=== PATIENT | male | born 1995 | race Caucasian/White ===

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

== ENCOUNTER 2018-03-25 02:38 | Emergency (ER) | payer SELFPAY, OTHER, MEDICAID | END 2018-03-25 03:02 | disposition left against medical advice (07) | LOC: M ED 02:38 | DX: Z53.29 Procedure and treatment not carried out because of patient's decision for other reasons (principal) ==

== ENCOUNTER 2019-05-24 22:30 | Emergency (ER) | payer OTHER, SELFPAY ==
[~2019-05-24] VITALS: Ht 190.5 cm; Wt 91.6 kg
[~2019-05-24 22:30] MED LIST changes: +TRAZ1TAB6 PO; -TRAZO50TA PO
[2019-05-25 01:29] VITALS: BP 132/66
--- NOTE | 2019-05-25 07:36 | REP ---
Clinical: Trauma. Technique: AP, lateral, bilateral oblique views of the right hand. Findings: There is a comminuted transverse fracture through the mid fourth metacarpal shaft with mild volar angulation and overlying soft tissue swelling. Impression: Fracture of the fourth metacarpal bone. Electronically Signed by Nicolas Howell MD 05/25/2019 07:27 A
== END 2019-05-25 01:35 | disposition home or self-care (01) ==
LOC: M ED 22:30
DX: S62.354A Nondisplaced fracture of shaft of fourth metacarpal bone, right hand, initial encounter for closed fracture (principal); Y04.0XXA Assault by unarmed brawl or fight, initial encounter; Y92.148 Other place in prison as the place of occurrence of the external cause; F17.210 Nicotine dependence, cigarettes, uncomplicated

== ENCOUNTER 2020-04-10 08:30 | Emergency (ER) | payer MEDICAID, OTHER, SELFPAY ==
[~2020-04-10] VITALS: Ht 188 cm; Wt 107.3 kg
[2020-04-10] MEDS ORDERED: SERO1TAB2 PO (08:51)
[2020-04-10 09:42] LABS: BASO # 0.1 10^3/uL (0.0-0.2); BASO % 0.8 % (0.0-1.0); EOS # 0.2 10^3/uL (0.0-0.5); EOS % 1.3 % (0.0-3.0); HEMATOCRIT 44.5 % (42.0-52.0); HEMOGLOBIN 15.1 g/dl (13.5-17.5); LYMPH # 2.8 10^3/uL (1.5-5.0); LYMPH % 24.4 % (24.0-44.0); MEAN CORPUSCULAR HGB CONC 33.9 g/dl (32.0-36.5); MEAN CORPUSCULAR VOLUME 85.6 fl (80.0-96.0); MONO # 1.3 10^3/uL (0.0-0.8); MONO % 11.3 % (0.0-5.0); PLATELET COUNT, AUTOMATED 331 10^3/uL (150-450); WHITE BLOOD COUNT 11.3 10^3/uL (4.0-10.0)
[2020-04-10] MEDS ORDERED: LIDOCAINE 2% MDV 20ML VIAL SC ONE (09:45)
[2020-04-10 10:05] LABS: ERYTHROCYTE SEDIMENTATION RATE 5 mm/hr (0-15)
[2020-04-10] MEDS ORDERED: BACT800T5 PO (11:10)
[2020-04-10 11:24] VITALS: BP 145/90
== END 2020-04-10 11:24 | disposition home or self-care (01) ==
LOC: M ED 08:30
DX: L60.0 Ingrowing nail (principal); F17.218 Nicotine dependence, cigarettes, with other nicotine-induced disorders

== ENCOUNTER 2020-05-19 13:06 | Emergency (ER) | payer MEDICAID ==
[~2020-05-19 13:06] MED LIST changes: +BACT800T5 PO; +SERO1TAB2 PO
== END 2020-05-19 14:40 | disposition left against medical advice (07) ==
LOC: M ED 13:06
DX: Z53.20 Procedure and treatment not carried out because of patient's decision for unspecified reasons (principal)

== ENCOUNTER 2020-06-01 01:00 | Emergency (ER) | payer MEDICAID, OTHER ==
[2020-06-01] MEDS ORDERED: LIDOCAINE W/EPINEPHRINE 1% 20ML VIAL As Ordered ONE (01:10)
== END 2020-06-01 01:45 | disposition left against medical advice (07) ==
LOC: M ED 01:00
DX: S31.030A Puncture wound without foreign body of lower back and pelvis without penetration into retroperitoneum, initial encounter (principal); S00.83XA Contusion of other part of head, initial encounter; X99.9XXA Assault by unspecified sharp object, initial encounter; Y92.410 Unspecified street and highway as the place of occurrence of the external cause; Z53.29 Procedure and treatment not carried out because of patient's decision for other reasons

== ENCOUNTER 2020-09-16 14:03 | Emergency (ER) | payer MEDICAID ==
[~2020-09-16] VITALS: Ht 182.9 cm; Wt 88.6 kg
[2020-09-16 14:04] VITALS: BP 151/68
[2020-09-16 15:08] LABS: BASO % 0.3 % (0.0-1.0); EOS # 0.1 10^3/uL (0.0-0.5); EOS % 0.7 % (0.0-3.0); LYMPH # 1.6 10^3/uL (1.5-5.0); LYMPH % 10.4 % (24.0-44.0); MEAN CORPUSCULAR HEMOGLOBIN 27.5 pg (27.0-33.0); MEAN CORPUSCULAR HGB CONC 31.8 g/dl (32.0-36.5); MEAN CORPUSCULAR VOLUME 86.3 fl (80.0-96.0); MONO # 1.1 10^3/uL (0.0-0.8); MONO % 7.4 % (0.0-5.0); NEUTROPHILS # 12.3 10^3/uL (1.5-8.5); NEUTROPHILS % 80.8 % (36.0-66.0); PLATELET COUNT, AUTOMATED 288 10^3/uL (150-450); WHITE BLOOD COUNT 15.2 10^3/uL (4.0-10.0)
[2020-09-16] MEDS ORDERED: ISOVUE-370 76% 100ML VIAL As Ordered ONE (15:26)
[2020-09-16] MEDS ORDERED: AUGM875T28 PO (17:17)
--- NOTE | 2020-09-21 08:15 | REP ---
INDICATION: R lower jaw swelling. Neck pain. Repeat dictation. Preliminary report is provided at the time of the exam by ginny GRADY. COMPARISON: None. TECHNIQUE: Helical scanning is acquired and 3 mm axial images re-formatted. 75 mL of intravenous Isovue 370 is administered. FINDINGS: Visualized intracranial structures are unremarkable. The paranasal sinuses are unremarkable. No intraorbital abnormality is seen. There are carious maxillary teeth bilaterally. Under opted wisdom teeth are noted bilaterally. No bony destructive lesion is appreciated. There is diffuse soft tissue swelling in the soft tissues about the right mandible angle and upper neck. There is swelling of the platysma on the right. No abscess is appreciated. Submandibular and parotid glands are normal and symmetric. There are multiple small thyroid nodules or cysts. The largest of these is in the left lobe of the thyroid gland measuring 7 mm in greatest diameter. There is shotty reactive mild right anterior cervical lymphadenopathy. The largest anterior cervical lymph node measures 9 mm in short axis dimension. Lung apices are clear. IMPRESSION: Soft tissue edema and dermal is and subdermal edema consistent with cellulitis. No abscess seen. Carious maxillary and mandibular teeth. Shotty cervical lymphadenopathy on the right. Multiple tiny thyroid nodules and/or cysts. <Electronically signed by Reinier Santa > 09/21/20 1329
== END 2020-09-16 17:24 | disposition home or self-care (01) ==
LOC: M ED 14:03
DX: L03.211 Cellulitis of face (principal); K02.9 Dental caries, unspecified; F31.9 Bipolar disorder, unspecified; F90.9 Attention-deficit hyperactivity disorder, unspecified type; F15.20 Other stimulant dependence, uncomplicated; F17.210 Nicotine dependence, cigarettes, uncomplicated
CPT/HCPCS: 36415; 70491; 80047; 85025; 87040; 99283; Q9967

== ENCOUNTER 2020-09-18 07:07 | Inpatient (IN) | payer MEDICAID, OTHER ==
[~2020-09-18] VITALS: Ht 185.4 cm; Wt 85.4 kg
[~2020-09-18 07:07] MED LIST changes: +AUGM875T28 PO
[2020-09-18] MEDS ORDERED: NS 2,560 ML in IV 1 EA IV ONE (08:00)
[2020-09-18] MEDS ORDERED: VANCOMYCIN HCL 1,000 MG, VIAL MATE ADAPTER 1 EACH in D5W 250 ML IV ONE (08:15)
[2020-09-18] MEDS ORDERED: VANCOMYCIN HCL 1,750 MG in D5W 250 ML IV ONE (08:15)
[2020-09-18] MEDS ORDERED: dexameTHASONE 20MG/5ML VIAL (J1100 PER 1MG) IV ONE (08:15)
[2020-09-18] MEDS ORDERED: VANCOMYCIN HCL 750 MG, VIAL MATE ADAPTER 1 EACH in D5W 250 ML IV ONE (08:15)
[2020-09-18 08:36] LABS: BASO # 0.1 10^3/uL (0.0-0.2); BASO % 0.3 % (0.0-1.0); EOS % 0.1 % (0.0-3.0); HEMATOCRIT 44.3 % (42.0-52.0); HEMOGLOBIN 14.3 g/dl (13.5-17.5); LYMPH # 2.1 10^3/uL (1.5-5.0); LYMPH % 9.1 % (24.0-44.0); MEAN CORPUSCULAR HEMOGLOBIN 27.3 pg (27.0-33.0); MEAN CORPUSCULAR HGB CONC 32.3 g/dl (32.0-36.5); MEAN CORPUSCULAR VOLUME 84.7 fl (80.0-96.0); MONO # 1.8 10^3/uL (0.0-0.8); MONO % 7.8 % (0.0-5.0); NEUTROPHILS # 18.5 10^3/uL (1.5-8.5); NEUTROPHILS % 82.2 % (36.0-66.0); PLATELET COUNT, AUTOMATED 330 10^3/uL (150-450); RED BLOOD COUNT 5.23 10^6/uL (4.30-6.10); WHITE BLOOD COUNT 22.6 10^3/uL (4.0-10.0)
[2020-09-18 08:49] LABS: ALT/SGPT 35 U/L (12-78); BILIRUBIN,DIRECT 0.3 MG/DL (0.0-0.2); BILIRUBIN,TOTAL 1.1 MG/DL (0.2-1.0); BLOOD UREA NITROGEN 6 MG/DL (7-18); CALCIUM LEVEL 9.2 MG/DL (8.5-10.1); CARBON DIOXIDE LEVEL 27 MEQ/L (21-32); CHLORIDE LEVEL 106 MEQ/L (98-107); CREATININE FOR GFR 0.86 MG/DL (0.70-1.30); GLOMERULAR FILTRATION RATE > 60.0 (>60); GLUCOSE, FASTING 125 MG/DL (70-100); POTASSIUM SERUM 3.4 MEQ/L (3.5-5.1); SODIUM LEVEL 140 MEQ/L (136-145); TOTAL PROTEIN 7.8 GM/DL (6.4-8.2)
[2020-09-18] MEDS ORDERED: ISOVUE-370 76% 100ML VIAL As Ordered ONE (09:01)
[2020-09-18 09:02] LABS: ERYTHROCYTE SEDIMENTATION RATE 10 mm/hr (0-15)
--- NOTE | 2020-09-18 09:42 | REP ---
INDICATION: large swollen r mandibular into neck. COMPARISON: 09/16/2020 TECHNIQUE: Axial contrast-enhanced images from the skull base to the thoracic inlet with coronal and sagittal reformations using 100 cc Isovue 370 intravenous contrast material. This CT examination was performed using the following dose reduction techniques: Automated exposure control, adjustment of mA and/or kv according to the patient's size, and use of iterative reconstruction technique. FINDINGS: There is considerable subcutaneous soft tissue swelling with areas of edema and fat stranding along the right side of the face extending from the level of the temporomandibular joint and to the right submandibular region centered at the angle of the mandible which has obviously increased from the prior examination. Forming phlegmon at the level of the angle of the mandible cannot be excluded, but without discernible abscess/drainable collection. Swelling extends deep to the right mandible with mild asymmetric inflammatory edematous changes to the right parapharyngeal region again without drainable collection. The airway remains patent and relatively midline. Associated reactive adenopathy is appreciated. The sinuses, mastoid air cells, and auditory canals appear patent and essentially normal. There is minimal mucosal thickening to the right maxillary sinus which is nonspecific and without fluid level. The above inflammatory/infectious changes may in part be related to dental disease involving the right maxillary 2nd molar which appears irregular and with loss of normal contour and small amount of adjacent gas. Remainder of the osseous structures appear relatively intact and normal. IMPRESSION: 1. Increasing inflammatory/infectious changes along the right-side of the face as described above. Phlegmonous changes are suspected, but without discernible drainable collection/abscess by current CT evaluation. 2. Findings may be secondary to dental process involving the right maxillary 2nd molar. <Electronically signed by Nicolas Howell > 09/18/20 0934
--- NOTE | 2020-09-18 11:16 | REP ---
INDICATION: swollen raised area, concern for collection r lower face COMPARISON: CT dated 09/18/2020, 09/16/2020 TECHNIQUE: Neely scale and color evaluation of the right facial region using linear high-frequency transducer. FINDINGS: Ultrasound examination demonstrates considerable inflammatory swelling and edema with small ill-defined areas of fluid insinuating between edematous fat. No definite discrete fluid pocket is appreciated to suggest obvious abscess. IMPRESSION: Findings consistent with inflammatory edematous changes and phlegmon and small ill defined areas of insinuating fluid without obvious discrete well-defined fluid collection/abscess. <Electronically signed by Nicolas Howell > 09/18/20 1114
[2020-09-18] MEDS ORDERED: KETOROLAC 30 MG/ML 1ML VIAL IV ONE (12:15)
[2020-09-18] MEDS ORDERED: VANCOMYCIN HCL 1,000 MG, VIAL MATE ADAPTER 1 EACH in D5W 250 ML IV SCH (13:30)
--- NOTE | 2020-09-18 13:37 | HPEPDOC ---
General Date of Admission 09/18/20 Date of Service: Sep 18, 2020 Chief Complaint The patient is a 25-year-old male admitted with a reason for visit of Skin Problem. Source: Patient Exam Limitations: No limitations Severity: Moderate Associated Symptoms: Weakness History of Present Illness Patient is 25 years old male with past medical history of drug abuse presented to the hospital with right facial swelling. Patient stated that 3 days ago he squeezed a pimple on the right side of his mandible, after that he developed severe inflammation with pus drained from squeezed pimple. Patient went to ER 2 days ago he received prescription for Augmentin but he didn't think it. Today patient developed severe inflammation with generalized weakness. In ER patient was found to have leukocytosis of 22. CT showed Increasing inflammatory/infectious changes along the right-side of the face as described above. Phlegmonous changes are suspected, but without discernible drainable collection/abscess by current CT evaluation. Home Medications No Active Prescriptions or Reported Meds Allergies Coded Allergies: No Known Allergies (Unverified , 05/24/19) Past Medical History Medical History No significant past medical history Family History I personally reviewed family history and found not pertinent Social History * Smoker: current smoker Alcohol: occationally Drugs: marijuana, other (methamphetamine) A-FIB/CHADSVASC A-FIB History Current/History of A-Fib/PAF?: No Current PO Anticoag Therapy: No Review of Systems Constitutional: Reports: Chills, Fatigue Eyes: Denies: Pain ENT: Reports: Other Symptoms (right upper Neck swelling) Skin: Reports: Breakdown (some drainable pus from right submandibular area) Pulmonary: Denies: Dyspnea Cardiovascular: Denies: Chest Pain Gastrointestinal: Denies: Nausea, Vomiting Genitourinary: Denies: Dysuria Hematologic: Denies: Bruising, Bleeding Excessively Endocrine: Denies: Polydipsia Musculoskeletal: Denies: Neck Pain Neurological: Denies: Weakness Psych: Reports: Mood Normal Physical Examination General Exam: Positive: Alert, Cooperative Eye Exam: Positive: PERRLA ENT Exam: Positive: Atraumatic, Other ENT (right submandibular swelling with drainable pus from submandibular area) Neck Exam: Negative: JVD Chest Exam: Positive: Clear to auscultation Heart Exam: Positive: Tachycardic; Negative: Rate Normal Telemetry: Positive: Sinus Abdomen Exam: Positive: Normal bowel sounds Extremity Exam: Negative: Clubbing Skin Exam: Negative: Rash Neuro Exam: Positive: Normal Gait Psych Exam: Positive: Mental status NL Vital Signs Vital Signs Date Time Temp Pulse Resp B/P (MAP) Pulse Ox O2 Delivery O2 Flow Rate FiO2 09/18/20 10:42 98.4 80 18 107/58 (74) 99 Room Air Laboratory Data Labs 24H Laboratory Tests 2 09/18/20 08:12: Immature Granulocyte % (Auto) 0.5, Neutrophils (%) (Auto) 82.2H, Lymphocytes (%) (Auto) 9.1L, Monocytes (%) (Auto) 7.8H, Eosinophils (%) (Auto) 0.1, Basophils (%) (Auto) 0.3, Neutrophils # (Auto) 18.5H, Lymphocytes # (Auto) 2.1, Monocytes # (Auto) 1.8H, Eosinophils # (Auto) 0.0, Basophils # (Auto) 0.1, Nucleated Red Blood Cells % (auto) 0.0, Erythrocyte Sedimentation Rate 10, Anion Gap 7L, Glomerular Filtration Rate > 60.0, Lactic Acid Level 1.3, Calcium Level 9.2, Total Bilirubin 1.1H, Direct Bilirubin 0.3H, Aspartate Amino Transf (AST/SGOT) 21, Alanine Aminotransferase (ALT/SGPT) 35, Alkaline Phosphatase 126H, C- Reactive Protein, Quantitative 15.30H, Total Protein 7.8, Albumin 4.0, Albumin/Globulin Ratio 1.1, Methicillin-Resist S.aureus DNA PCR DETECTEDA 09/18/20 10:16: Coronavirus (COVID-19)(PCR) NEGATIVE CBC/BMP Laboratory Tests 09/18/20 08:12 Microbiology Microbiology 09/18/20 Blood Culture, Received Pending 09/18/20 Blood Culture, Received Pending Assessment/Plan Patient is 25 years old male with past medical history of drug abuse presented to the hospital with right facial swelling. Patient stated that 3 days ago he squeezed a pimple on the right side of his mandible, after that he developed severe inflammation with pus drained from squeezed pimple. Patient went to ER 2 days ago he received prescription for Augmentin but he didn't think it. Today mark viramnotes developed severe inflammation with generalized weakness. In ER patient was found to have leukocytosis of 22. CT showed Increasing inflammatory/infectious changes along the right-side of the face as described above. Phlegmonous changes are suspected, but without discernible drainable collection/abscess by current CT evaluation. Problems (1) Sepsis Status: Acute Problem Text: Secondary to right face submandibular cellulitis MRSA screen positive CT scan negative for drainable abscess Blood culture ordered Vancomycin IV If patient not improve 12 hours I will ask ENT evaluation (2) Cellulitis, face Status: Acute Problem Text: See above Plan / VTE VTE Prophylaxis Ordered?: Yes GENNY PATEL DO Sep 18, 2020 13:37
[2020-09-18 15:20] VITALS: BP 121/80
[2020-09-18] MEDS: VANCOMYCIN HCL 750 MG, VIAL MATE ADAPTER 1 EACH in D5W 250 ML IV SCH ×2 (15:33→23:04)
[2020-09-18] MEDS: NS 1,000 ML IV SCH ×2 (15:33→21:39)
[2020-09-18] MEDS: ACETAMINOPHEN TAB 650MG DOSE (2X325MG) PO PRN ×2 (16:42→20:20)
[2020-09-18] MEDS: VANCOMYCIN HCL 500 MG in D5W MINI-BAG PLUS 100 ML IV SCH (16:42)
--- NOTE | 2020-09-18 19:15 | ECGEPIP ---
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
[2020-09-18] MEDS: HEPARIN SOD (PORCINE) 5000UNITS/ML 1ML VIAL/SYRINGE SC SCH (20:20)
[2020-09-18 22:00] VITALS: BP 121/79
[2020-09-19] MEDS: VANCOMYCIN HCL 500 MG in D5W MINI-BAG PLUS 100 ML IV SCH ×3 (00:22→17:10)
[2020-09-19] MEDS: NS 1,000 ML IV SCH ×3 (05:59→22:45)
[2020-09-19 06:00] VITALS: BP 118/63
[2020-09-19 06:29] LABS: HEMATOCRIT 41.3 % (42.0-52.0); HEMOGLOBIN 13.5 g/dl (13.5-17.5); MEAN CORPUSCULAR HEMOGLOBIN 28.2 pg (27.0-33.0); MEAN CORPUSCULAR HGB CONC 32.7 g/dl (32.0-36.5); MEAN CORPUSCULAR VOLUME 86.4 fl (80.0-96.0); PLATELET COUNT, AUTOMATED 291 10^3/uL (150-450); RED BLOOD COUNT 4.78 10^6/uL (4.30-6.10); WHITE BLOOD COUNT 15.7 10^3/uL (4.0-10.0)
[2020-09-19] MEDS: VANCOMYCIN HCL 750 MG, VIAL MATE ADAPTER 1 EACH in D5W 250 ML IV SCH ×3 (06:31→22:46)
[2020-09-19 06:47] LABS: ALT/SGPT 25 U/L (12-78); BILIRUBIN,TOTAL 0.5 MG/DL (0.2-1.0); BLOOD UREA NITROGEN 6 MG/DL (7-18); CALCIUM LEVEL 8.8 MG/DL (8.5-10.1); CARBON DIOXIDE LEVEL 25 MEQ/L (21-32); CHLORIDE LEVEL 111 MEQ/L (98-107); CREATININE FOR GFR 0.73 MG/DL (0.70-1.30); GLOMERULAR FILTRATION RATE > 60.0 (>60); GLUCOSE, FASTING 144 MG/DL (70-100); POTASSIUM SERUM 3.6 MEQ/L (3.5-5.1); SODIUM LEVEL 142 MEQ/L (136-145); TOTAL PROTEIN 6.2 GM/DL (6.4-8.2)
[2020-09-19] MEDS: HEPARIN SOD (PORCINE) 5000UNITS/ML 1ML VIAL/SYRINGE SC SCH ×2 (08:44→20:18)
[2020-09-19] MEDS ORDERED: POTASSIUM CHLORIDE 10 MEQ SR TABLET PO ONE (09:00)
[2020-09-19] MEDS ORDERED: RAMELTEON 8 MG TAB (ROZEREM) PO PRN (09:15)
--- NOTE | 2020-09-19 10:18 | IPNPDOC ---
Text Note Date of Service The patient was seen on 09/19/20. NOTE Subjective: No any acute events overnight. Patient denied fever, chills, nausea, vomiting, dysuria Objective: GENERAL APPEARANCE: NAD HEENT: no scleral icterus, no JVD, EOMI, right submandibular swelling CARDIOVASCULAR: S1S2 LUNGS: CTA ABDOMEN: soft & not tender w palpitation MUSCULOSKELETAL: no cyanosis, no swelling INTEGUMENT: no generalized pallor NEUROLOGICAL: cranial nerve function from 2-12 intact intact, follows commands, speech not dysarthric Assessment/Plan Patient is 25 years old male with past medical history of drug abuse presented to the hospital with right facial swelling. Patient stated that 3 days ago he squeezed a pimple on the right side of his mandible, after that he developed severe inflammation with pus drained from squeezed pimple. Patient went to ER 2 days ago he received prescription for Augmentin but he didn't think it. Today patient developed severe inflammation with generalized weakness. In ER patient was found to have leukocytosis of 22. CT showed Increasing inflammatory/infectious changes along the right-side of the face as described above. Phlegmonous changes are suspected, but without discernible drainable collection/abscess by current CT evaluation. Problems (1) Sepsis Improved Secondary to right face submandibular cellulitis MRSA screen positive CT scan negative for drainable abscess Blood culture negative Continue Vancomycin IV (2) Cellulitis, face Improved See above VS,Gine, I+O VS, Fishbone, I+O Laboratory Tests 09/19/20 05:57 Vital Signs Date Time Temp Pulse Resp B/P (MAP) Pulse Ox O2 Delivery O2 Flow Rate FiO2 09/19/20 06:00 97.4 74 16 118/63 (81) 98 Room Air I&O- Last 24 Hours up to 6 AM 09/19/20 05:59 Intake Total 3935 ml Output Total 0 ml Balance 3935 ml GENNY PATEL DO Sep 19, 2020 10:18
[2020-09-19] MEDS: ACETAMINOPHEN TAB 650MG DOSE (2X325MG) PO PRN ×2 (11:54→20:19)
--- NOTE | 2020-09-19 12:09 | IPNPDOC ---
Text Note Date of Service The patient was seen on 09/19/20. NOTE Venancio was seen by me this morning. His history is known from other notes He states he is doing better with less pain and swelling He tells me that his cyst has been draining spontaneously; On exam he is afebrile and in No distress or pain There is induration over the submandibluar area and a semifluctuant subcutaneous mass pointing to the surface in the center of it. His WBC is down IMP This was a cutaneous cyst that became infected, probable staph and is now trying to point. The associated cellulitis is responding nicley to the IV ABX REC Continue IV ABX for 24 more hours then I have told him that he should present to the ENT Clinic on Friday 09/21 where we can prooperly open this lesion and drain it. It is spontaneosly pointing so there is no urgency and I do not find it satisfactory to attmept these things at bedside unless it is urgent. Please provide him with clinic number [phone] and I will notify them to put him first thing. Thank you Isabel OLGUIN I+O Isabel OLGUIN I+O Laboratory Tests 09/19/20 05:57 Vital Signs Date Time Temp Pulse Resp B/P (MAP) Pulse Ox O2 Delivery O2 Flow Rate FiO2 09/19/20 06:00 97.4 74 16 118/63 (81) 98 Room Air I&O- Last 24 Hours up to 6 AM 09/19/20 05:59 Intake Total 3935 ml Output Total 0 ml Balance 3935 ml ZARI PAINTING MD Sep 19, 2020 12:09
[2020-09-19 14:00] VITALS: BP 116/74
[2020-09-19 22:00] VITALS: BP 134/62
[2020-09-20] MEDS: VANCOMYCIN HCL 500 MG in D5W MINI-BAG PLUS 100 ML IV SCH ×2 (00:13→08:18)
[2020-09-20 06:00] VITALS: BP 128/60
[2020-09-20] MEDS: NS 1,000 ML IV SCH (06:33)
[2020-09-20] MEDS: VANCOMYCIN HCL 750 MG, VIAL MATE ADAPTER 1 EACH in D5W 250 ML IV SCH (06:34)
[2020-09-20] MEDS: HEPARIN SOD (PORCINE) 5000UNITS/ML 1ML VIAL/SYRINGE SC SCH (08:19)
[2020-09-20 09:22] LABS: BASO # 0.1 10^3/uL (0.0-0.2); BASO % 1.1 % (0.0-1.0); EOS # 0.3 10^3/uL (0.0-0.5); EOS % 3.9 % (0.0-3.0); HEMATOCRIT 43.2 % (42.0-52.0); HEMOGLOBIN 13.9 g/dl (13.5-17.5); LYMPH % 49.9 % (24.0-44.0); MEAN CORPUSCULAR HEMOGLOBIN 28.4 pg (27.0-33.0); MEAN CORPUSCULAR HGB CONC 32.2 g/dl (32.0-36.5); MEAN CORPUSCULAR VOLUME 88.2 fl (80.0-96.0); MONO # 0.8 10^3/uL (0.0-0.8); MONO % 10.3 % (0.0-5.0); NEUTROPHILS # 2.8 10^3/uL (1.5-8.5); NEUTROPHILS % 34.7 % (36.0-66.0); PLATELET COUNT, AUTOMATED 317 10^3/uL (150-450)
[2020-09-20] MEDS ORDERED: CLIN150C14 PO (09:52)
--- NOTE | 2020-09-20 11:30 | DS.PDOC ---
Discharge Summary General Date of Admission Sep 18, 2020 at 13:19 Date of Discharge 09/20/20 Discharge Summary PROCEDURES PERFORMED DURING STAY: [None]. ADMITTING DIAGNOSES: Sepsis Cellulitis, face DISCHARGE DIAGNOSES: Sepsis Cellulitis, face COMPLICATIONS/CHIEF COMPLAINT: Cellulitis, Face. HISTORY OF PRESENT ILLNESS: Patient is 25 years old male with past medical history of drug abuse presented to the hospital with right facial swelling. Patient stated that 3 days ago he squeezed a pimple on the right side of his mandible, after that he developed severe inflammation with pus drained from squeezed pimple. Patient went to ER 2 days ago he received prescription for Augmentin but he didn't think it. Today patient developed severe inflammation with generalized weakness. In ER patient was found to have leukocytosis of 22. CT showed Increasing inflammatory/infectious changes along the right-side of the face as described above. Phlegmonous changes are suspected, but without discernible drainable collection/abscess by current CT evaluation HOSPITAL COURSE: During hospital stay following issue addressed (1) Sepsis Improved Secondary to right face submandibular cellulitis MRSA screen positive CT scan negative for drainable abscess Blood culture negative Continue Vancomycin IV (2) Cellulitis, face Improved See above DISCHARGE MEDICATIONS: Please see below. ALLERGIES: Please see below. PHYSICAL EXAMINATION ON DISCHARGE: VITAL SIGNS: Please see below. GENERAL APPEARANCE: NAD HEENT: no scleral icterus, no JVD, EOMI, right submandibular swelling CARDIOVASCULAR: S1S2 LUNGS: CTA ABDOMEN: soft & not tender w palpitation MUSCULOSKELETAL: no cyanosis, no swelling INTEGUMENT: no generalized pallor NEUROLOGICAL: cranial nerve function from 2-12 intact intact, follows commands, speech not dysarthric LABORATORY DATA: Please see below. IMAGING: TECHNIQUE: Axial contrast-enhanced images from the skull base to the thoracic inlet with coronal and sagittal reformations using 100 cc Isovue 370 intravenous contrast material. This CT examination was performed using the following dose reduction techniques: Automated exposure control, adjustment of mA and/or kv according to the patien t's size, and use of iterative reconstruction technique. FINDINGS: There is considerable subcutaneous soft tissue swelling with areas of edema and fat stranding along the right side of the face extending from the level of the temporomandibular joint and to the right submandibular region centered at the angle of the mandible which has obviously increased from the prior examination. Forming phlegmon at the level of the angle of the mandible cannot be excluded, but without discernible abscess/drainable collection. Swelling extends deep to the right mandible with mild asymmetric inflammatory edematous changes to the right parapharyngeal region again without drainable collection. The airway remains patent and relatively midline. Associated reactive adenopathy is appreciated. The sinuses, mastoid air cells, and auditory canals appear patent and essentially normal. There is minimal mucosal thickening to the right maxillary sinus which is nonspecific and without fluid level. The above inflammatory/infectious changes may in part be related to dental disease involving the right maxillary 2nd molar which appears irregular and with loss of normal contour and small amount of adjacent gas. Remainder of the osseous structures appear relatively intact and normal. IMPRESSION: 1. Increasing inflammatory/infectious changes along the right-side of the face as described above. Phlegmonous changes are suspected, but without discernible drainable collection/abscess by current CT evaluation. 2. Findings may be secondary to dental process involving the right maxillary 2nd molar. <Electronically signed by Nicolas Howell > 09/18/20937 DD: Nicolas Howell MD 09/18/20926 DT: ALBERTO 09/18/20937 DS: COLE 09/18/2092609/18/20926 PROGNOSIS: Fair ACTIVITY: [As tolerated]. DIET: Regular DISPOSITION: Home ITEMS TO FOLLOWUP ON ON OUTPATIENT: Follow-up with ENT on Monday DISCHARGE CONDITION: [Stable]. TIME SPENT ON DISCHARGE: Greater than 20 minutes. Vital Signs/I&Os Vital Signs Date Time Temp Pulse Resp B/P (MAP) Pulse Ox O2 Delivery O2 Flow Rate FiO2 09/20/20 06:00 97.8 58 16 128/60 (82) 100 Room Air I&O- Last 24 Hours up to 6 AM 09/20/20 05:59 Intake Total 4545 ml Output Total 0 ml Balance 4545 ml Laboratory Data Labs 24H Laboratory Tests 2 09/20/20 08:57: Immature Granulocyte % (Auto) 0.1, Neutrophils (%) (Auto) 34.7L, Lymphocytes (%) (Auto) 49.9H, Monocytes (%) (Auto) 10.3H, Eosinophils (%) (Auto) 3.9H, Basophils (%) (Auto) 1.1H, Neutrophils # (Auto) 2.8, Lymphocytes # (Auto) 4.0, Monocytes # (Auto) 0.8, Eosinophils # (Auto) 0.3, Basophils # (Auto) 0.1, Nucleated Red Blood Cells % (auto) 0.0 CBC/BMP Laboratory Tests 09/20/20 08:57 Microbiology Microbiology 09/18/20 Blood Culture - Preliminary, Resulted No Growth after 48 hours. All Specime... 09/18/20 Blood Culture - Preliminary, Resulted No Growth after 48 hours. All Specime... Discharge Medications Scheduled Clindamycin Hcl (Clindamycin HCl) 150 Mg Capsule, 1 CAP PO QID Allergies Coded Allergies: No Known Allergies (Unverified , 05/24/19) GENNY PATEL DO Sep 20, 2020 11:30
== END 2020-09-20 11:33 | disposition home or self-care (01) | DRG 720 ==
LOC: M ED 07:07 → M ED INP 13:19 → ENRESERV 14:21 → M MSPAV 15:23
PROVIDERS: ADMIT Internal Medicine; ATTEND Internal Medicine
DX: A41.9 Sepsis, unspecified organism (principal); L03.211 Cellulitis of face; F17.200 Nicotine dependence, unspecified, uncomplicated; K11.6 Mucocele of salivary gland; Z20.828 Contact with and (suspected) exposure to other viral communicable diseases; B95.62 Methicillin resistant Staphylococcus aureus infection as the cause of diseases classified elsewhere

== ENCOUNTER 2020-11-02 23:32 | Emergency (ER) | payer OTHER ==
[~2020-11-02] VITALS: Ht 182.9 cm; Wt 80.3 kg
[~2020-11-02 23:32] MED LIST changes: +CLIN150C15 PO
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
[2020-11-03] MEDS ORDERED: LIDOCAINE 1% MDV 20ML VIAL SC ONE
[2020-11-03] MEDS ORDERED: BOOSTRIX/ADACEL VACCINE (DIPHTH/PERTUSS/ACELL/TETANUS) 0.5ML SYR IM ONE (00:15)
[2020-11-03 00:59] LABS: HEMATOCRIT 48.9 % (42.0-52.0); HEMOGLOBIN 15.8 g/dl (13.5-17.5); MEAN CORPUSCULAR HEMOGLOBIN 27.7 pg (27.0-33.0); MEAN CORPUSCULAR HGB CONC 32.3 g/dl (32.0-36.5); MEAN CORPUSCULAR VOLUME 85.6 fl (80.0-96.0); PLATELET COUNT, AUTOMATED 375 10^3/uL (150-450); RED BLOOD COUNT 5.71 10^6/uL (4.30-6.10); WHITE BLOOD COUNT 9.5 10^3/uL (4.0-10.0)
[2020-11-03 01:39] LABS: ACETAMINOPHEN LEVEL < 2.0 UG/ML (10.0-30.0); ALBUMIN 4.3 GM/DL (3.2-5.2); ALT/SGPT 35 U/L (12-78); BILIRUBIN,DIRECT 0.4 MG/DL (0.0-0.2); BILIRUBIN,TOTAL 2.2 MG/DL (0.2-1.0); BLOOD UREA NITROGEN 8 MG/DL (7-18); CALCIUM LEVEL 9.8 MG/DL (8.5-10.1); CARBON DIOXIDE LEVEL 25 MEQ/L (21-32); CHLORIDE LEVEL 106 MEQ/L (98-107); CREATININE FOR GFR 0.84 MG/DL (0.70-1.30); ETHYL ALCOHOL (ETHANOL) 0.006 % (0.000-0.010); GLOMERULAR FILTRATION RATE > 60.0 (>60); GLUCOSE, FASTING 91 MG/DL (70-100); POTASSIUM SERUM 3.6 MEQ/L (3.5-5.1); SALICYLATE LEVEL < 1.7 MG/DL (5.0-30.0); SODIUM LEVEL 138 MEQ/L (136-145); TOTAL PROTEIN 8.1 GM/DL (6.4-8.2)
[2020-11-03 02:12] LABS: AMPHETAMINES LEVEL URINE POSITIVE (NEGATIVE); BARBITURATES URINE NEGATIVE (NEGATIVE); BENZODIAZEPINES URINE NEGATIVE (NEGATIVE); CANNABINOIDS URINE POSITIVE (NEGATIVE); COCAINE METABOLITE URINE NEGATIVE (NEGATIVE); METHADONE URINE NEGATIVE (NEGATIVE); OPIATES URINE NEGATIVE (NEGATIVE); PHENCYCLIDINE URINE NEGATIVE (NEGATIVE)
[2020-11-03 04:35] LABS: RSV AMPLIFICATION NEGATIVE (NEGATIVE)
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
[2020-11-03 11:46] VITALS: BP 150/82
== END 2020-11-03 11:52 ==
LOC: M ED 23:32
DX: R45.850 Homicidal ideations (principal); R45.851 Suicidal ideations; S51.812A Laceration without foreign body of left forearm, initial encounter; W26.0XXA Contact with knife, initial encounter; Y92.9 Unspecified place or not applicable; Y93.89 Activity, other specified; Y99.9 Unspecified external cause status; F19.10 Other psychoactive substance abuse, uncomplicated
CPT/HCPCS: 12004; 80048; 80076; 80307; 84443; 85027; 87631; 90471; 90715; 93005; 99285; G0480

== ENCOUNTER 2020-12-28 15:34 | Inpatient (IN) | payer OTHER ==
[~2020-12-28] VITALS: Ht 185.4 cm; Wt 81.3 kg
[2020-12-28] MEDS ORDERED: DERMABOND TOPICAL SKIN ADHESIVE TOP ONE (16:20)
[2020-12-28 17:01] LABS: HEMOGLOBIN 14.7 g/dl (13.5-17.5); MEAN CORPUSCULAR HEMOGLOBIN 28.7 pg (27.0-33.0); MEAN CORPUSCULAR HGB CONC 32.7 g/dl (32.0-36.5); MEAN CORPUSCULAR VOLUME 87.7 fl (80.0-96.0); PLATELET COUNT, AUTOMATED 330 10^3/uL (150-450); RED BLOOD COUNT 5.13 10^6/uL (4.30-6.10); WHITE BLOOD COUNT 6.8 10^3/uL (4.0-10.0)
[2020-12-28 17:21] LABS: AMPHETAMINES LEVEL URINE POSITIVE (NEGATIVE); BARBITURATES URINE NEGATIVE (NEGATIVE); BENZODIAZEPINES URINE NEGATIVE (NEGATIVE); CANNABINOIDS URINE NEGATIVE (NEGATIVE); COCAINE METABOLITE URINE NEGATIVE (NEGATIVE); METHADONE URINE NEGATIVE (NEGATIVE); OPIATES URINE NEGATIVE (NEGATIVE); PHENCYCLIDINE URINE NEGATIVE (NEGATIVE)
[2020-12-28 17:31] LABS: ALBUMIN 3.6 GM/DL (3.2-5.2); ALT/SGPT 20 U/L (12-78); BILIRUBIN,DIRECT 0.1 MG/DL (0.0-0.2); BILIRUBIN,TOTAL 0.4 MG/DL (0.2-1.0); BLOOD UREA NITROGEN 11 MG/DL (7-18); CARBON DIOXIDE LEVEL 29 MEQ/L (21-32); CHLORIDE LEVEL 110 MEQ/L (98-107); CREATININE FOR GFR 0.81 MG/DL (0.70-1.30); ETHYL ALCOHOL (ETHANOL) < 0.003 % (0.000-0.010); GLOMERULAR FILTRATION RATE > 60.0 (>60); GLUCOSE, FASTING 98 MG/DL (70-100); POTASSIUM SERUM 4.2 MEQ/L (3.5-5.1); SALICYLATE LEVEL < 1.7 MG/DL (5.0-30.0); SODIUM LEVEL 142 MEQ/L (136-145); THYROID STIMULATING HORMONE 0.923 uIU/ML (0.358-3.740); TOTAL PROTEIN 6.7 GM/DL (6.4-8.2)
[2020-12-28 17:32] LABS: ACETAMINOPHEN LEVEL < 2.0 UG/ML (10.0-30.0)
[2020-12-28 18:58] LABS: RSV AMPLIFICATION NEGATIVE (NEGATIVE)
[2020-12-28] MEDS ORDERED: OLANZapine ORAL DISINTEGRATING TAB 5MG PO PRN (23:00)
[2020-12-28] MEDS ORDERED: ACETAMINOPHEN TAB 650MG DOSE (2X325MG) PO PRN (23:00)
[2020-12-28] MEDS ORDERED: MOM 30ML SUSPENSION UDC PO PRN (23:00)
[2020-12-28] MEDS ORDERED: MAALOX 30 ML SUSP *UDC PO PRN (23:00)
[2020-12-29] MEDS: traZODone 50 MG TAB PO PRN ×2 (00:49→22:44)
[2020-12-29] MEDS: NICOTINE 21MG/24HR 1 EA TRANSDERMAL TD SCH (09:00)
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
[2020-12-29 17:39] VITALS: BP 129/67
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
[2020-12-30 06:00] VITALS: BP 135/60
[2020-12-30] MEDS: NICOTINE 21MG/24HR 1 EA TRANSDERMAL TD SCH (08:44)
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
== END 2020-12-30 11:35 | disposition home or self-care (01) | DRG 754 ==
LOC: M ED 15:34 → M ED INP 15:35 → M ED 23:59 → M PSY 12-29 00:02
PROVIDERS: ADMIT Psychiatry & Neurology Child & Adolescent Psychiatry; ATTEND Psychiatry & Neurology Child & Adolescent Psychiatry
DX: F32.9 Major depressive disorder, single episode, unspecified (principal); R45.851 Suicidal ideations; M54.5 Low back pain; F17.200 Nicotine dependence, unspecified, uncomplicated; Z95.0 Presence of cardiac pacemaker

== ENCOUNTER 2025-10-22 09:40 | Emergency (ER) | payer OTHER, SELFPAY ==
[~2025-10-22] VITALS: Ht 180.3 cm; Wt 102.7 kg
[~2025-10-22 09:40] MED LIST changes: -CLIN150C15 PO; +CLIN150C17 PO
[2025-10-22] MEDS ORDERED: SERO200T PO (09:52)
[2025-10-22] MEDS: ACETAMINOPHEN 500 MG TAB PO ONE (12:18)
[2025-10-22] MEDS ORDERED: AMOX875T2 PO (14:36)
[2025-10-22 14:55] VITALS: BP 127/67; TEMP 97.9; O2SAT 94
== END 2025-10-22 15:02 | disposition home or self-care (01) ==
LOC: M ED 09:40
DX: S62.014A Nondisplaced fracture of distal pole of navicular [scaphoid] bone of right wrist, initial encounter for closed fracture (principal); Y92.148 Other place in prison as the place of occurrence of the external cause; Y93.9 Activity, unspecified; Y99.9 Unspecified external cause status; W22.09XA Striking against other stationary object, initial encounter; F41.9 Anxiety disorder, unspecified; F60.3 Borderline personality disorder; F90.9 Attention-deficit hyperactivity disorder, unspecified type; Z79.2 Long term (current) use of antibiotics; Z79.899 Other long term (current) drug therapy